=== PATIENT | male | born 1945 | race Caucasian/White ===

== ENCOUNTER → 2020-01-29 | Outpatient (CLI) | payer OTHER ==
--- NOTE | 2020-01-29 10:12 | 2DMMODE ---
[facility] [place] [address] 2 D/M-MODE ECHOCARDIOGRAM Name: SULEMA MATHIS Room #: REG [facility]#: [id number] Admission: 01/29/20 Attend Phys: Popeye Escobar MD Discharge: Date of : 47 Report #: [id number] THIS REPORT FOR: cc: Blake St MD, David MD Lammoglia, Francisco J. MD ~ APPROVED REPORT Study performed: 01/29/2020 09:37:17 EXAM: Comprehensive 2D, Doppler, and color-flow Echocardiogram Patient Location: Out-Patient Status: routine BSA: 2.00 HR: 59 bpm Rhythm: NSR/PVCs Other Information Study Quality: Adequate Indications History of KS. COPD. 2D Dimensions RVDd: 30.76 mm IVSd: 12.27 (7-11mm) LVOT Diam: 23.30 (18-24mm) LVDd: 53.09 mm PWd: 13.23 (7-11mm) Ascending Ao: 33.71 (22-36mm) LVDs: 38.08 (25-40mm) Aortic Root: 39.09 mm Volumes Left Atrial Volume (Systole) Single Plane 4CH: 58.14 mL Single Plane 2CH: 66.59 mL LA ESV Index: 33.00 mL/m2 Aortic Valve AoV Peak Hong.: 1.28 m/s AO Peak Gr.: 6.57 mmHg LVOT Max P.59 mmHg LVOT Max V: 1.07 m/s YOANA Vmax: 3.56 cm2 [facility] [address] [address] 2 D/M-MODE ECHOCARDIOGRAM Name: DELFINASULEMA Room #: REG [facility]#: [id number] Admission: 01/29/20 Attend Phys: Popeye Escobar MD Discharge: Date of : 47 Report #: [id number] Mitral Valve E/A Ratio: 0.7 MV Decel. Time: 141.46 ms MV E Max Hong.: 0.49 m/s MV A Hong.: 0.68 m/s MV PHT: 41.02 ms IVRT: 96.89 ms Pulmonary Valve PV Peak Hong.: 1.12 m/s PV Peak Gr.: 4.98 mmHg Pulmonary Vein P Vein S: 0.83 m/s P Vein D: 0.22 m/s P Vein S/D Ratio: 3.77 Tricuspid Valve TR Peak Hong.: 2.45 m/s RAP Estimate: 5.00 mmHg TR Peak Gr.: 24.00 mmHg PA Pressure: 29.00 mmHg Left Ventricle The left ventricle is normal size. There is normal LV segmental wall motion. Mild concentric left ventricular hypertrophy. Left ventricular systolic function is normal. LVEF is 55%. Mild diastolic dysfunction is present (impaired relaxation pattern). Right Ventricle The right ventricle is normal size. The right ventricular systolic function is normal. Atria Both atria measure at the upper limits of normal. Aortic Valve The aortic valve is normal in structure. No aortic regurgitation is present. There is no aortic valvular stenosis. Mitral Valve The mitral valve is normal in structure. Trace mitral regurgitation. No evidence of mitral valve stenosis. Tricuspid Valve The tricuspid valve is normal in structure. Trace tricuspid regurgitation. Estimated PAP is 30mmHg. [facility] [address] [place] [address] 2 D/M-MODE ECHOCARDIOGRAM Name: SULEMA MATHIS Lore Room #: REG [facility].#: [id number] Admission: 01/29/20 Attend Phys: Popeye Escobar MD Discharge: Date of : 47 Report #: [id number] Pulmonic Valve Pulmonic valve is not well visualized. There is no pulmonic valvular regurgitation noted. Great Vessels Aortic root is mildly dilated. The ascending aorta is normal in size. IVC is normal in size and collapses >50% with inspiration. Pericardium There is no pericardial effusion. <Conclusion> The left ventricle is normal size. LVEF is 55%. The aortic valve is normal in structure. The mitral valve is normal in structure. Trace mitral regurgitation. The tricuspid valve is normal in structure. Trace tricuspid regurgitation. Estimated PAP is 30mmHg. Pulmonic valve is not well visualized. Aortic root is upper limits of normal There is no pericardial effusion. <ELECTRONICALLY SIGNED> By: Ignacio Carrasco MD 01/29/20 1011 [id number] 1011 Ignacio Carrasco MD /INF
== END ==
LOC: CV 09:01
PROVIDERS: ATTEND Orthopaedic Surgery
DX: I25.2 Old myocardial infarction (principal); J44.9 Chronic obstructive pulmonary disease, unspecified